=== PATIENT | female | born 1980 | race American Indian/Alaskan Native ===

== ENCOUNTER 2016-08-04 20:32 | Inpatient (IN) | payer OTHER ==
[2016-08-04] MEDS ORDERED: ZOFRAN IV PRN (20:43)
[2016-08-04] MEDS ORDERED: MILK OF MAGNESIA PO PRN (20:43)
[2016-08-04] MEDS ORDERED: TYLENOL PO PRN (20:43)
[2016-08-04 23:41] LABS: Hematocrit 36.4 % (30.3-42.9); Hemoglobin 11.7 gm/dl (10.1-14.3); Mean Corpuscular HGB Conc 32 % (30-34); Mean Corpuscular Volume 78 fl (79-97); Platelet Count 336 K/mm3 (140-440); Red Blood Count 4.67 M/mm3 (3.65-5.03); Red Cell Distribution Width 15.6 % (13.2-15.2); White Blood Count 9.3 K/mm3 (4.5-11.0)
[2016-08-04] MEDS ORDERED: LACTATED RINGERS 1,000 ML IV SCH (23:45)
[2016-08-04 23:46] LABS: Mean Corpuscular Hemoglobin 25 pg (28-32)
[2016-08-05 00:01] LABS: Alanine Aminotransferase 6 units/L (7-56); Albumin 3.7 g/dL (3.9-5); Alkaline Phosphatase 47 units/L (35-129); Anion Gap 18 mmol/L; BUN/Creatinine Ratio 11.66; Bilirubin,Total 0.4 mg/dL (0.1-1.2); Blood Urea Nitrogen 7 mg/dL (7-17); Calcium 8.5 mg/dL (8.4-10.2); Carbon Dioxide 22 mmol/L (22-30); Chloride 101.2 mmol/L (98-107); Glucose 88 mg/dL (65-100); Potassium 3.5 mmol/L (3.6-5.0); Sodium 138 mmol/L (137-145); Total Protein 7.3 g/dL (6.3-8.2)
--- NOTE | 2016-08-05 01:46 | History and Physical Report ---
History of Present Illness Date of admission: 08/04/16 20:32 History of present illness: This is a 35-year-old female 2 para 0 presents [facility] ER for further evaluation due to possible ectopic . She was recently given an order for hysterosalpingogram Clomid. She was instructed to have the HSG performed before taking the Clomid however patient proceeded with taking the Clomid. She presented to [facility] with rectal spasms and pressure in her pelvis with vaginal bleeding. Evaluation at [facility] revealed a quantitative beta hCG of 200.8 with a 3.3 cm mass in the right adnexa. Patient is admitted now for further evaluation for possible ectopic Past History Past Medical History: No medical history Past Surgical History: No surgical history Medications and Allergies Allergies Allergy/AdvReac Type Severity Reaction Status Date / Time No Known Allergies Allergy Verified 08/04/16 21:38 Active Meds: Active Medications Acetaminophen (Tylenol) 650 mg PO Q4H PRN PRN Reason: Pain MILD(1-3)/Fever >100.5/PARKINSON Last Admin: 08/04/16 22:50 Dose: 650 mg Lactated Ringer's (Lactated Ringers) 1,000 mls @ 42 mls/hr IV DIRECT SLOANE Last Admin: 08/05/16 00:25 Dose: 42 mls/hr Magnesium Hydroxide (Milk Of Magnesia) 30 ml PO Q4H PRN PRN Reason: Constipation Ondansetron HCl (Zofran) 4 mg IV Q8H PRN PRN Reason: N/V unrelieved by Reglan Review of Systems All systems: negative Genitourinary Female: pelvic pain Rectal: pain Exam - Constitutional Vitals: Temp Pulse Resp BP Pulse Ox 98.8 F 80 20 117/71 08/04/16 21:50 08/04/16 21:50 08/04/16 21:50 08/04/16 21:50 Results - Labs CBC & Chem 7: 08/04/16 22:58 08/04/16 22:58 Labs: Abnormal lab results 08/04/16 08/04/16 08/04/16 Range/Units 22:58 22:58 22:58 MCV 78 L (79-97) fl MCH 25 L (28-32) pg RDW 15.6 H (13.2-15.2) % Potassium 3.5 L (3.6-5.0) mmol/L Creatinine 0.6 L (0.7-1.2) mg/dL ALT 6 L (7-56) units/L Albumin 3.7 L (3.9-5) g/dL HCG, Quant 128.8 H (0-4) mIU/mL Assessment and Plan - Patient Problems (1) Abnormal in first trimester Current Visit: Yes Status: Acute Plan to address problem: Patient presents now with what appears to be either an abnormal (SAB versus ectopic) versus early intrauterine . We'll follow serial CBCs and check quantitative beta hCG and repeat ultrasound today.
[2016-08-05 07:50] LABS: Hematocrit 34.7 % (30.3-42.9); Hemoglobin 11.4 gm/dl (10.1-14.3)
--- NOTE | 2016-08-05 12:03 | Ultrasound Report ---
ULTRASOUND OB LESS THAN 14 WEEKS FETUS ULTRASOUND OB TRANSVAGINAL History: Ectopic . Technique: Transabdominal and transvaginal images. Findings: The uterus measures 7 x 5 x 6 cm. No intrauterine is identified. The endometrial stripe measures 2.3 cm. The cervix is closed. No uterine fibroid disease. There is small to medium fluid in the cul-de-sac. The right ovary measures 4.1 x 3.0 x 3.4 cm. There are 3 small cysts in the right ovary measuring between 1.0-1.5 cm. One of these appears slightly complex and The left ovary is unremarkable and measures 3.3 x 2.1 x 1.6 cm. Impression: No intrauterine is visualized. There are 3 right ovarian cysts. I suppose one of these could represent a small gestational sac although no ring of fire or pole is identified. Consider correlation with beta-hCG levels and followup.
--- NOTE | 2016-08-05 14:25 | Admit Criteria Form ---
Admission Criteria Documentation: OBSTETRIC AND GYNECOLOGIC DISEASE GRG Clinical Indications for Admission to Inpatient Care (Place 'X' for any and all applicable criteria): Hospital admission is needed for appropriate care of the patient because of ANY ONE of the following (1)(2)(3): [ ]I. Hemodynamic instability, as indicated by ALL of the following (1)(2)(3)( 4)(5): [ ]a) Vital signs or other findings not as expected for chronic patient condition or baseline [ ]b) Instability indicated by ANY ONE of the following: [ ]i) Hypotension [ ]ii) Symptomatic tachycardia unresponsive to treatment (eg, analgesia, fluids, sedation as indicated) [ ]iii) Inadequate perfusion indicated by ANY ONE of the following: [ ]A. Lactic acidosis (greater than 2 mmol/ L) [ ]B. New abnormal capillary refill ( greater than 3 seconds) [ ]C. Reduced urine output [ ]D. New altered mental status [ ]iv) Orthostatic vital sign changes unresponsive to treatment (eg, fluids) [ ]v) Multiple IV fluid boluses required to maintain adequate blood pressure or perfusion [ ]vi) IV inotropic or vasopressor medication required to maintain adequate blood pressure or perfusion [ ]II. Obstetric infection requiring hospitalization indicated by ANY ONE of the following(13)(14): [ ]a) Chorioamnionitis [ ]b) Endometritis (except mild endometritis) [ ]c) Pelvic abscess [ ]d) Peritonitis [ ]e) Septic pelvic thrombophlebitis [ ]III. Amniotic fluid or pulmonary embolism(4)(5)(6) [ ]IV. Suspected peritonitis or ectopic requiring monitoring beyond scope of 24 hours or observation care(7)(8) [ ]V. compromise requiring hospitalization indicated by ALL of the following(9)(10): [ ]a) compromise indicated by ANY ONE of the following(11): [ ]i) Abnormal heart rate monitoring [ ]ii) Abnormal contraction stress test [ ]iii) Abnormal biophysical profile [ ]iv) Abnormal Doppler flow in vessels (ie, Doppler velocimetry) (12) [ ]b) Persistence of compromise indicators during evaluation and observation monitoring [ ]. Ovarian hyperstimulation syndrome requiring hospitalization[A] indicated by ALL of the following(15): [ ]a) Recent ovarian stimulation with gonadotropins, or evidence on ultrasound of spontaneous emergence of large number of ovarian follicles [ ]b) Evidence of severe ovarian hyperstimulation syndrome indicated by ANY ONE of the following: [ ]i) Abdominal pain unresponsive to oral therapy [ ]ii) Acute respiratory distress syndrome [ ]iii) Electrolyte imbalance ( eg, hyponatremia, hyperkalemia) [ ]iv) Elevated liver enzymes [ ]v) Evidence of thromboembolism [ ]vi) Hemoconcentration (hematocrit greater than 45 % (0.45)) [ ]vii) Inability to maintain oral intake adequate to prevent hemoconcentration [ ]viii) Marked hypotension from baseline (eg, SBP 20 mmHg below patients usual pressure) [ ]ix) Oliguria or anuria [ ]x) Ovarian torsion [ ]xi) Pleural or pericardial effusion on x-ray or echocardiogram [ ]xii) Rapid increase in serum creatinine to greater than 1.2 mg/dL (106 micromoles/L) or creatinine clearance less than 50 mL/min/1.73m2 (0.84 mL/ sec/1.73m2) [ ]xiii) Ruptured ovarian cyst with hemorrhage [ ]xiv) Severe abdominal pain or peritoneal signs [ ]xv) Tense ascites that cannot be managed with paracentesis in outpatient setting [ ]VII.Pelvic infection requiring hospitalization indicated by ANY ONE of the following (16): [ ]a) Outpatient treatment has failed or is not appropriate (eg, inpatient monitoring required) [ ]b) Pelvic abscess [ ]c) Surgical emergency cannot be excluded (eg, rigid abdomen) [ ]d) Vomiting precluding outpatient and observation care management VIII. loss complications requiring inpatient medical treatment indicated by ANY ONE of the following (4)(7)(9): [ ]a) Fever [ ]b) Peritonitis [ ]c) Sepsis [ ]d) Severe abdominal pain [ ]IX. or patient requiring monitoring for severe heart failure, pulmonary disease, or other comorbid condition (eg, peripartum cardiomyopathy) (4)(17) [ ]X. patient with rupture of membranes requiring hospitalization indicated by ANY ONE of the following: [ ]a) Chorioamnionitis, cloudy amniotic fluid, or other evidence of infection [ ]b) compromise or other need for monitoring (11) [ ]c) Gestation longer than 23 weeks and ANY ONE of the following: [ ]i) Abnormal (noncephalic) presentation [ ]ii) Inadequate home environment (eg, home too far from hospital, unable to rapidly return to hospital) [ ]d) Temperature greater than 100.4 degrees F (38 degrees C)( oral) [ ]e) Threatened labor requiring monitoring beyond scope (eg, over 24 hours) of observation Care [ ] XI. complications, including severe lacerations, infections, or retained placenta (19) [ ] XII.Uterine bleeding with high-risk features indicated by ANY ONE of the following (4): [ ]a) Active major hemorrhage (eg, hemorrhage) [ ]b) Coagulopathy with active bleeding [ ]c) Gestational trophoblastic disease (eg, molar ) (20 ) [ ]d) (longer than 23 weeks) and ANY ONE of the following: [ ]i) Pain [ ]ii) Placental abruption, known or suspected [ ]iii) Placenta accrete, known or suspected(21) [ ]iv) Placenta previa, known or suspected [ ]v) Vasa previa [ ]e) Severe anemia [ X]XIII. Obstetric or Gynecologic Disease, condition or symptom for which ANY ONE of the following: [ X]a) Emergency and observation care have failed or are not considered appropriate ( Also use General Criteria: Observation Care Criteria as appropriate) [ ]b) Presence of a General Admission Criteria or Pediatric General Admission Criteria The original [facility] content created by [facility] has been revised. The portions of the content which have been revised are identified through the use of italic text or in bold, and [facility] has neither reviewed nor approved the modified material.All other unmodified content is copyright [facility]. Please see references footnoted in the original [facility] edition 2016 Admission Criteria Met: Yes
--- NOTE | 2016-08-05 15:28 | Short Stay Summary ---
Short Stay Documentation Date of service: 08/05/16 - History Past Medical History: No medical history Past Surgical History: No surgical history - Allergies and Medications Current Medications: Allergies No Known Allergies Allergy (Verified 08/04/16 21:38) Active Medications Acetaminophen (Tylenol) 650 mg PO Q4H PRN PRN Reason: Pain MILD(1-3)/Fever >100.5/[facility] Last Admin: 08/04/16 22:50 Dose: 650 mg Lactated Ringer's (Lactated Ringers) 1,000 mls @ 42 mls/hr IV DIRECT SLOANE Last Admin: 08/05/16 00:25 Dose: 42 mls/hr Magnesium Hydroxide (Milk Of Magnesia) 30 ml PO Q4H PRN PRN Reason: Constipation Ondansetron HCl (Zofran) 4 mg IV Q8H PRN PRN Reason: N/V unrelieved by Reglan - Hospital course Hospital course: Patient was admitted for observation due to previous facility diagnosis of ectopic . Patient repeat beta-hCG equaled 128. Patient was overnight had no further vaginal bleeding pain subsided patient's abdomen was soft and nontender the time of discharge she did have a repeat pelvic ultrasound which respectively did not show intrauterine did see a probable ovarian cysts one Complex but significant finding consistent with ectopic . Discussed findings with patient and . Patient will be discharged and follow up outpatient in our office she is scheduled for repeat beta-hCG on 08/07. Pain and bleeding precautions given. Patient's questions answered. - Disposition Condition at discharge: Good Disposition: DISCHARGED TO HOME OR SELFCARE - Discharge Diagnoses (1) Abnormal in first trimester Status: Acute Short Stay Discharge Plan Activity: other (pelvic rest) Additional Instructions: Keep appointment scheduled for 08/07/2016 at 9 AM Follow up with: MALDONADO BEATTY MD [Primary Care Provider] - 7 Days
[2016-08-05 16:07] VITALS: BP 117/78
== END 2016-08-05 16:00 | disposition home or self-care (01) | DRG 777 ==
LOC: OB 20:32
PROVIDERS: ADMIT Obstetrics & Gynecology; ATTEND Obstetrics & Gynecology
DX: O00.90 Unspecified ectopic pregnancy without intrauterine pregnancy (principal); Z3A.00 Weeks of gestation of pregnancy not specified
CPT/HCPCS: 36415; 76801; 76817; 80053; 84702; 85014; 85018; 85027; 86850; 86900; 86901; J7120